=== PATIENT | male | born 1970 | race Caucasian/White ===

== ENCOUNTER 2016-11-21 19:38 | Emergency (ER) | payer SELFPAY ==
[2016-11-21] MEDS ORDERED: Tetracaine HCl/PF 0.5% 4 ML Bottle EYELF ONE (20:27)
[2016-11-21] MEDS ORDERED: Diphtheria,Pertussis(Acell),Tetanus Vaccine 0.5 ML SDV IM ONE (20:39)
--- NOTE | 2016-11-21 20:44 | EDM.PDOC ---
ED HPI GENERAL MEDICAL PROBLEM - General Chief Complaint: Eye Problems Stated Complaint: SOMETHING IN L EYE Time Seen by Provider: 11/21/16 20:25 Source of Information: Reports: Patient, Family, RN Notes Reviewed History Limitations: Reports: No Limitations - History of Present Illness INITIAL COMMENTS - FREE TEXT/NARRATIVE: 46-year-old gentleman presents emergency department today with concern of foreign body in his left eye he was grinding metal may have gotten a piece in his eye, complaints no visual complaints other than discomfort Left Eye Pain Score (Numeric/FACES): 5 - Related Data Allergies Allergy/AdvReac Type Severity Reaction Status Date / Time No Known Allergies Allergy Verified 11/21/16 20:01 Home Meds: Home Meds Allopurinol [Zyloprim] 100 mg PO DAILY 11/21/16 [History] Hydrochlorothiazide/Lisinopril [Lisinopril-HCTZ 20-12.5 MG] 1 tab PO DAILY 11/21 [History] Lisinopril 10 mg PO DAILY 11/21/16 [History] atorvaSTATin [Lipitor] 40 mg PO BEDTIME 11/21/16 [History] metFORMIN [Glucophage] 1,000 mg PO BIDMEALS 11/21/16 [History] Past Medical History Cardiovascular History: Reports: High Cholesterol, Hypertension Musculoskeletal History: Reports: Fracture Other Musculoskeletal History: fx arm Endocrine/Metabolic History: Reports: Diabetes, Type II - Infectious Disease History Infectious Disease History: Reports: Chicken Pox Social & Family History - Tobacco Use Smoking Status *Q: Never Smoker Second Hand Smoke Exposure: No - Caffeine Use Caffeine Use: Reports: Coffee, Soda, Tea - Recreational Drug Use Recreational Drug Use: No ED ROS GENERAL - Review of Systems Review Of Systems: See Below Constitutional: Reports: No Symptoms HEENT: Reports: Eye Discharge, Eye Pain Respiratory: Reports: No Symptoms Cardiovascular: Reports: No Symptoms ED EXAM GENERAL W FULL EYE - Physical Exam Exam: See Below Exam Limited By: No Limitations General Appearance: Alert, WD/WN, No Apparent Distress Eye Exam: Right Eye: Normal Inspection, Bilateral Eye: EOMI Visual Acuity (R) 20/: 30 Visual Acuity (L) 20/: 20 With Correction: No Eyelids: Bilateral: Normal Appearance Conjunctiva & Sclera: Right: Normal Appearance Cornea Exam: Left: Corneal Ulcer, Cloudy Cornea (Removed with a 21-gauge needle) Extraocular Movements: Bilateral: Intact Pupils: Normal Accommodation Pupillary Size: Bilateral: 4 mm Pupillary Reaction: Bilateral: Brisk Anterior Chamber: Bilateral: Normal Appearance Course - Vital Signs Last Recorded V/S: Last Vital Signs Temp 98.0 F 11/21/16 20:11 Pulse 61 11/21/16 20:11 Resp 16 11/21/16 20:11 BP 162/113 H 11/21/16 20:11 Pulse Ox 94 L 11/21/16 20:11 - Orders/Labs/Meds Orders: Active Orders 24 hr Category Date Time Status Vaccines to be Administered [RC] PER UNIT ROUTINE Care 11/21/16 20:39 Ordered Meds: Medications Discontinued Medications Generic Name Dose Route Start Last Admin Trade Name Freq PRN Reason Stop Dose Admin Diphtheria/Tetanus/Acell Pertussis 0.5 ml 11/21/16 20:39 Adacel IM 11/21/16 20:40 .ONCE ONE Tetracaine HCl 4 ml 11/21/16 20:27 11/21/16 20:38 Tetracaine 0.5% Steri-Unit Anabella EYELF 11/21/16 20:28 4 ml ASDIRECTED ONE Administration Departure - Departure Time of Disposition: 20:43 Disposition: Home, Self-Care 01 Condition: good Clinical Impression: Foreign body, eye Qualifiers: Encounter type: initial encounter Laterality: left Qualified Code(s): T15.92XA - Foreign body on external eye, part unspecified, left eye, initial encounter - Discharge Information Forms: ED Department Discharge Additional Instructions: Start antibiotics tonight, followup with your eye care provider in the next one to 2 days for reevaluation - My Orders Last 24 Hours: My Active Orders 11/21/16 20:39 Vaccines to be Administered [RC] PER UNIT ROUTINE - Assessment/Plan Last 24 Hours: My Active Orders 11/21/16 20:39 Vaccines to be Administered [RC] PER UNIT ROUTINE Plan: Assessment Acuity = [acute Site and laterality = foreign body left eye Etiology = probable piece of metal steel Manifestations = none Location of injury = home Lab values = none Plan Tetanus provided, antibiotics of gentamicin, plan to follow up with the eye care provider in the next one to 2 days Patient was in agreement with the plan all questions were answered, they were instructed to return to the emergency department or call for worsening symptoms. This note was dictated using [employer] voice recognition software please call with any questions.
[2016-11-21 21:00] VITALS: BP 133/101
--- NOTE | 2016-11-22 10:43 | PCM.PN ---
- General Info Date of Service: 11/22/16 Admission Dx/Problem (Free Text): Note is opened in the error please see ED note for details - Patient Data Vitals - most recent: Last Vital Signs Temp 98.0 F 11/21/16 20:11 Pulse 61 11/21/16 20:11 Resp 16 11/21/16 20:11 BP 133/101 H 11/21/16 20:59 Pulse Ox 94 L 11/21/16 20:11 Weight - most recent: 120.8 kg Med Orders - Current: Current Medications Discontinued Medications Diphtheria/Tetanus/Acell Pertussis (Adacel) 0.5 ml IM .ONCE ONE Stop: 11/21/16 20:40 Last Admin: 11/21/16 20:56 Dose: 0.5 ml Tetracaine HCl (Tetracaine 0.5% Steri-Unit Anabella) 4 ml EYELF ASDIRECTED ONE Stop: 11/21/16 20:28 Last Admin: 11/21/16 20:38 Dose: 4 ml - Problem List Review Problem List Initiated/Reviewed/Updated: No - My Orders Last 24 Hours: My Active Orders 11/21/16 20:39 Vaccines to be Administered [RC] PER UNIT ROUTINE
== END 2016-11-21 21:09 | disposition home or self-care (01) ==
LOC: JP.ED 19:38
DX: T15.92XA Foreign body on external eye, part unspecified, left eye, initial encounter (principal); I10 Essential (primary) hypertension; E78.00 Pure hypercholesterolemia, unspecified; E11.9 Type 2 diabetes mellitus without complications; Z79.899 Other long term (current) drug therapy
CPT/HCPCS: 90471; 90715; 99283; A9270